=== PATIENT | male | born 1965 | race Caucasian/White ===

== ENCOUNTER 2016-09-29 11:43 | Inpatient (IN) | payer OTHER ==
[~2016-09-29] VITALS: Ht 200.7 cm; Wt 91.4 kg
[2016-10-05] MEDS ORDERED: VITA1000 PO (09:04)
[2016-10-05] MEDS ORDERED: TRAM50TA PO (09:04)
[2016-11-11] MEDS ORDERED: ceFAZolin 2 GM PREMIX 50 ML IV SCH (05:45)
[2016-11-11] MEDS: POVIDONE IODINE 7.5% SCRUB 118 ML BOTTLE TOP SCH (05:45)
[2016-11-11] MEDS ORDERED: EXPAREL PERI-ARTICULAR INJECTION (TOTAL VOL. 60 ML) P-ARTICULR SCH ×2 (05:45)
[2016-11-11] MEDS ORDERED: METOPROLOL TARTRATE 25 MG TAB PO PRN (05:45)
[2016-11-11] MEDS ORDERED: VANCOMYCIN 1250 MG/NS 250 ML (for 70-84 kg) IV SCH ×2 (05:45)
[2016-11-11] MEDS ORDERED: LACTATED RINGER'S 1000 ML IV SCH (05:45)
[2016-11-11] MEDS ORDERED: SODIUM CHLORID 0.9% 500 ML IV SCH (05:45)
[2016-11-11] MEDS ORDERED: INSULIN HUMAN REGULAR 1,000 UNITS/10 ML VIAL SQ PRN (05:45)
[2016-11-11] MEDS ORDERED: MELO-1 PO (06:26)
[2016-11-11 06:30] VITALS: BP 131/77; PULSE 88; RESP 20; TEMP 98; O2SAT 98
[2016-11-11 06:42] LABS: AUTOMATED NEUTROPHIL # 5.4 TH/MM3 (1.8-7.7); BASOPHIL # 0.1 TH/MM3 (0-0.2); BASOPHIL % 0.8 % (0.0-2.0); EOSINOPHIL # 0.2 TH/MM3 (0-0.4); HEMATOCRIT 40.3 % (39.0-51.0); HEMO FLAGS DIFF FINAL; LYMPH % 19.7 % (9.0-44.0); LYMPHOCYTE # 1.6 TH/MM3 (1.0-4.8); MEAN CELL VOLUME 90.4 FL (80.0-100.0); MEAN CORPUSCULAR HEMOGLOBIN 31.7 PG (27.0-34.0); MEAN CORPUSCULAR HGB CONC 35.1 % (32.0-36.0); MONO % 9.4 % (0.0-8.0); NEUT % 67.1 % (16.0-70.0); PLATELET COUNT 293 TH/MM3 (150-450); RED BLOOD COUNT 4.46 MIL/MM3 (4.50-5.90); RED CELL DISTRIBUTION WIDTH 13.2 % (11.6-17.2); WHITE BLOOD COUNT 8.1 TH/MM3 (4.0-11.0)
[2016-11-11 06:56] LABS: BICARBONATE 27.2 MEQ/L (21.0-32.0); POTASSIUM 3.6 MEQ/L (3.5-5.1)
[2016-11-11] MEDS ORDERED: MIDAZOLAM HCL 2 MG/2 ML VIAL ONE (07:25)
[2016-11-11] MEDS ORDERED: ACETAMINOPHEN 1000 MG/100 ML VIAL IV ONE (07:25)
[2016-11-11] MEDS ORDERED: TRANEXAMIC ACID IV SCH ×2 (07:30→10:30)
[2016-11-11] MEDS ORDERED: SODIUM CHLORIDE 0.9% IV SCH ×2 (07:30→10:30)
[2016-11-11] MEDS ORDERED: GENTAMICIN SULFATE 80 MG/2 ML VIAL XX ONE (08:18)
[2016-11-11] MEDS ORDERED: fentaNYL CITRATE 250 MCG/5 ML AMP ONE (11:38)
[2016-11-11] MEDS ORDERED: *morphine SULFATE 8 MG/ML PERIprocedure ONLY ONE (11:39)
[2016-11-11] MEDS ORDERED: *ONDANSETRON 4 MG VIAL PERIprocedural Use ONLY ONE (11:39)
[2016-11-11] MEDS ORDERED: DO NOT ADM ANY ANTICOAGULANT DRUGS XX PRN (11:39)
[2016-11-11] MEDS ORDERED: SODIUM CHLORIDE 0.9% FLUSH 5 ML FLUSH IVF PRN (11:45)
[2016-11-11] MEDS ORDERED: NALOXONE HCL 0.4 MG/ML AMP IV PRN (11:45)
[2016-11-11] MEDS ORDERED: diphenhydrAMINE HCL 50 MG/ML VIAL IV PRN (11:45)
[2016-11-11] MEDS ORDERED: ONDANSETRON HCL 4 MG/2 ML VIAL IVP PRN (11:45)
[2016-11-11] MEDS ORDERED: Post-op Orders (for Pharmacy) MISC XX ONE (11:45)
[2016-11-11] MEDS ORDERED: ACETAMINOPHEN/HYDROcodone 325 MG/5 MG TAB PO PRN (11:45)
[2016-11-11] MEDS ORDERED: HYDR-3516 PO (11:49)
[2016-11-11] MEDS ORDERED: ENOX40P SQ (11:49)
--- NOTE | 2016-11-11 11:51 | HHI.FF ---
Face to Face Verification Diagnosis: (1) S/P total hip arthroplasty Physical Therapy Gait training, Safety evaluation, Transfer training, bed to chair Hip: Total hip, Protocol: Left, Abduction pillow while in bed Left LE Weight Bearing: WB as tolerated Nursing Nursing: Iker teaching, Dressing changes Dressing Changes: Daily dressing change, Coverderm/Primapore I have seen patient Pooja Millan on 11/11/16. My clinical findings support the need for the requested home health care services because: Limited ability to care for self Injectable med education/admin I certify that my clinical findings support that this patient is homebound because: Unable to use public transportation Zeyad Moy MD Nov 11, 2016 11:51
[2016-11-11] MEDS ORDERED: MISC-163 (11:52)
[2016-11-11] MEDS ORDERED: MISC-274 (11:52)
[2016-11-11] MEDS: MORPHINE SULFATE 30 MG/30 ML PCA IV SCH (12:06)
[2016-11-11] MEDS: DEXT 5%-NACL 0.9% 1000 ML INJ 1,000 ML IV SCH ×2 (12:08→21:44)
[2016-11-11] MEDS ORDERED: NEOSTIGMINE 3 MG/3 ML SYR IV ONE (12:38)
[2016-11-11] MEDS ORDERED: ONDANSETRON HCL 4 MG/2 ML VIAL IV PUSH ONE (12:38)
[2016-11-11] MEDS ORDERED: PROPOFOL 200 MG/20 ML AMP IV ONE (12:38)
[2016-11-11] MEDS: KETOROLAC TROMETHAMINE 30 MG/ML (IVP) VIAL IVP SCH ×2 (12:57→18:24)
[2016-11-11 13:27] VITALS: BP 151/81; PULSE 104; RESP 16; TEMP 95.7; O2SAT 100
--- NOTE | 2016-11-11 13:31 | RADRPT ---
EXAM DATE/TIME: 11/11/2016 12:49 [facility] COMPARISON: No previous studies available for comparison. INDICATIONS : Post op left hip surgery. MEDICAL HISTORY : Unobtainable. SURGICAL HISTORY : Unobtainable. ENCOUNTER: Initial ACUITY: 1 day PAIN SCORE: 10/10 LOCATION: Left hip. FINDINGS: There is a total hip prosthesis in place. The acetabular component is secured by 2 screws. The hardwa re appears well placed. There is a surgical drain seen. CONCLUSION: Successful left total hip replacement. Jimmy Iverson MD on November 11, 2016 at 13:29 Board Certified Radiologist. This report was verified electronically.
--- NOTE | 2016-11-11 13:56 | RADRPT ---
EXAM DATE/TIME: 11/11/2016 08:14 [facility] COMPARISON: No previous studies available for comparison. INDICATIONS : Total left hip replacement. MEDICAL HISTORY : None. SURGICAL HISTORY : None. ENCOUNTER: Initial ACUITY: 1 day PAIN SCORE: Non-responsive. LOCATION: Left hip. FINDINGS: Examination of the hip demonstrates postsurgical changes following joint replacement. Acetabular and femoral components are well-seated in satisfactory alignment. There is no acute fracture. CONCLUSION: Satisfactory postoperative appearance of the left hip status post right replacement. Juan David Ramos MD on November 11, 2016 at 13:54 Board Certified Radiologist. This report was verified electronically.
[2016-11-11] MEDS: PCA - TOTAL MG MORPHINE DELIVERED PER SHIFT SCH ×2 (14:00→22:58)
[2016-11-11] MEDS: ceFAZolin 2 GM PREMIX 50 ML IV SCH ×2 (14:55→20:33)
[2016-11-11 16:00] VITALS: BP 141/78; PULSE 89; RESP 16; TEMP 97.1; O2SAT 100
[2016-11-11 16:53] VITALS: O2SAT 100
[2016-11-11] MEDS: ACETAMINOPHEN 1000 MG/100 ML VIAL IV SCH (18:23)
[2016-11-11] MEDS ORDERED: VANCOMYCIN INJ 1,500 MG in SODIUM CHLORID 0.9% 500 ML INJ 500 ML IV SCH (21:00)
[2016-11-11] MEDS: SODIUM CHLORIDE 0.9% FLUSH 5 ML FLUSH IVF SCH (21:00)
[2016-11-11] MEDS ORDERED: TEMAZEPAM 15 MG CAP PO PRN (21:00)
[2016-11-11 22:40] VITALS: BP 127/70; PULSE 98; RESP 18; TEMP 96.7; O2SAT 98
[2016-11-12 00:25] VITALS: BP 112/54; PULSE 101; RESP 18; TEMP 99.9; O2SAT 95
[2016-11-12] MEDS: KETOROLAC TROMETHAMINE 30 MG/ML (IVP) VIAL IVP SCH ×5 (01:00→16:51)
[2016-11-12] MEDS: ceFAZolin 2 GM PREMIX 50 ML IV SCH (02:57)
[2016-11-12] MEDS: DEXT 5%-NACL 0.9% 1000 ML INJ 1,000 ML IV SCH ×3 (03:06→19:37)
[2016-11-12] MEDS: POVIDONE IODINE 7.5% SCRUB 118 ML BOTTLE TOP SCH (03:15)
[2016-11-12 03:40] VITALS: BP 151/79; PULSE 97; RESP 18; TEMP 99.1; O2SAT 98
[2016-11-12] MEDS: ACETAMINOPHEN 1000 MG/100 ML VIAL IV SCH ×2 (05:19→18:26)
[2016-11-12] MEDS: MORPHINE SULFATE 30 MG/30 ML PCA IV SCH (06:16)
[2016-11-12] MEDS: PCA - TOTAL MG MORPHINE DELIVERED PER SHIFT SCH (06:16)
[2016-11-12 07:01] LABS: HEMATOCRIT 34.9 % (39.0-51.0); REVIEW FLAG FINAL
[2016-11-12 07:23] LABS: POTASSIUM 3.9 MEQ/L (3.5-5.1)
[2016-11-12] MEDS: SODIUM CHLORIDE 0.9% FLUSH 5 ML FLUSH IVF SCH ×2 (07:59→19:39)
--- NOTE | 2016-11-12 07:59 | PD.ORT.PN ---
Subjective Post Op Day #: 1 Pain Scale: 4 Subjective Remarks ok Distance Walked OOB yesterday Objective Vitals Vital Signs Date Time Temp Pulse Resp B/P Pulse Ox O2 Delivery O2 Flow Rate FiO2 11/12/16 06:16 18 11/12/16 06:16 18 11/12/16 03:40 99.1 97 18 151/79 98 11/12/16 00:25 99.9 101 18 112/54 95 11/11/16 22:58 18 11/11/16 22:40 96.7 98 18 127/70 98 11/11/16 16:53 100 Nasal Cannula 2.00 11/11/16 16:00 97.1 89 16 141/78 100 11/11/16 13:27 95.7 104 16 151/81 100 11/11/16 13:00 98.0 86 12 155/93 98 Nasal Cannula 2 11/11/16 12:45 85 14 139/83 97 Nasal Cannula 2 11/11/16 12:30 79 14 135/86 97 Nasal Cannula 3 11/11/16 12:15 85 15 150/90 98 Nasal Cannula 3 11/11/16 12:11 18 11/11/16 12:06 15 11/11/16 12:00 87 13 152/90 94 Nasal Cannula 3 11/11/16 11:45 80 16 152/89 95 Nasal Cannula 3 11/11/16 11:30 98.3 92 15 160/92 94 Nasal Cannula 3 I/O 11/11/16 11/11/16 11/11/16 11/12/16 11/12/16 11/12/16 07:00 15:00 23:00 07:00 15:00 23:00 Intake Total 1165 ml 1787 ml 480 ml Output Total 300 ml 580 ml 880 ml Balance 865 ml 1207 ml -400 ml Intake Oral 265 ml 480 ml 480 ml IV Total 1307 ml Other 900 ml Output Urine Total 0 ml 300 ml 750 ml Drainage Total 0 ml 280 ml 130 ml Estimated Blood Loss 300 ml # Bowel Movements 0 0 0 Result Diagram: 11/12/1607 11/12/16606 Imaging Last 24 hours Impressions Hip X-Ray 11/11/16 1137 Signed Impressions: Service Date/Time: Friday, November 11, 2016 12:49 - CONCLUSION: Successful left total hip replacement. Jimmy Iverson MD Objective Remarks A,A, and O Dressings dry, drain out. Moves toes well Assessment & Plan Ortho Post Op Day #: 1 Problem List: Assessment and Plan Stable post op left NABIL,Zeyad Grimes MD Nov 12, 2016 07:59
[2016-11-12 08:00] VITALS: BP 139/72; PULSE 97; RESP 19; TEMP 99.2; O2SAT 99
[2016-11-12] MEDS ORDERED: PNEUMOCOCCAL POLYVALENT INJ 25 MCG/0.5 ML SYR IM ONE (09:00)
[2016-11-12] MEDS ORDERED: ASPIRIN 325 MG TAB PO ONE (11:00)
[2016-11-12] MEDS ORDERED: ENOXAPARIN SODIUM 40 MG/0.4 ML SYRINGE SQ SCH (11:00)
[2016-11-12 11:12] VITALS: BP 140/69; PULSE 102; RESP 18; TEMP 100.3; O2SAT 95
[2016-11-12] MEDS: ACETAMINOPHEN/HYDROcodone 325 MG/5 MG TAB PO PRN ×2 (15:35→19:38)
[2016-11-12 16:00] VITALS: BP 138/70; PULSE 98; RESP 17; TEMP 99.2; O2SAT 96
[2016-11-12] MEDS: POLYETHYLENE GLYCOL 17 GM PKG PO SCH (19:39)
[2016-11-12] MEDS: ASPIRIN 325 MG TAB PO SCH (19:39)
[2016-11-12] MEDS: DOCUSATE SODIUM 100 MG CAP PO SCH (19:39)
[2016-11-12] MEDS: BISACODYL EC 5 MG TABEC PO SCH (19:39)
[2016-11-12] MEDS: MAGNESIUM HYDROXIDE SUSP 30 ML CUP PO SCH (19:39)
[2016-11-12 20:00] VITALS: BP 131/70; PULSE 98; RESP 18; TEMP 98.9; O2SAT 96
[2016-11-13] VITALS: BP 137/74; PULSE 95; RESP 18; TEMP 98.1; O2SAT 97
[2016-11-13] MEDS: KETOROLAC TROMETHAMINE 30 MG/ML (IVP) VIAL IVP SCH ×2 (02:02→05:43)
[2016-11-13] MEDS: ACETAMINOPHEN/HYDROcodone 325 MG/5 MG TAB PO PRN ×4 (02:02→18:13)
[2016-11-13] MEDS: DEXT 5%-NACL 0.9% 1000 ML INJ 1,000 ML IV SCH ×3 (03:06→19:37)
[2016-11-13] MEDS: POVIDONE IODINE 7.5% SCRUB 118 ML BOTTLE TOP SCH (03:07)
--- NOTE | 2016-11-13 05:27 | PD.ORT.PN ---
Subjective Post Op Day #: 2 Pain Scale: hurts Subjective Remarks was quite painful during radiation bec of leg and back stiffness Objective Vitals Vital Signs Date Time Temp Pulse Resp B/P Pulse Ox O2 Delivery O2 Flow Rate FiO2 11/13/16 00:00 98.1 95 18 137/74 97 11/12/16 20:00 98.9 98 18 131/70 96 11/12/16 16:00 99.2 98 17 138/70 96 11/12/16 11:12 100.3 102 18 140/69 95 11/12/16 08:00 99.2 97 19 139/72 99 11/12/16 06:16 18 11/12/16 06:16 18 I/O 11/12/16 11/12/16 11/12/16 11/13/16 11/13/16 11/13/16 07:00 15:00 23:00 07:00 15:00 23:00 Intake Total 480 ml 620 ml 480 ml 240 ml Output Total 880 ml 900 ml Balance -400 ml 620 ml 480 ml -660 ml Intake Oral 480 ml 620 ml 480 ml 240 ml Output Urine Total 750 ml 900 ml Drainage Total 130 ml # Voids 3 2 # Bowel Movements 0 0 0 Result Diagram: 11/12/16 0607 11/12/16 0607 Imaging Last 24 hours Impressions Hip X-Ray 11/11/16 1137 Signed Impressions: Service Date/Time: Friday, November 11, 2016 12:49 - CONCLUSION: Successful left total hip replacement. Jimmy Iverson MD Objective Remarks sleeping comfy, wakes up easily Dressings dry, drain out. Moves toes well DC plan discussed ASA for VTE prophylaxis. Low risk DVT Assessment & Plan Ortho Post Op Day #: 2 Problem List: Assessment and Plan Stable post op left NABIL,ASI DC wednesday with [facility], [facility] and ASA Zeyad Leslie MD Nov 13, 2016 05:27
[2016-11-13] MEDS ORDERED: ASPI325T PO (05:30)
[2016-11-13] MEDS: ACETAMINOPHEN 1000 MG/100 ML VIAL IV SCH ×2 (05:44→16:42)
[2016-11-13] MEDS ORDERED: MORPHINE SULFATE 4 MG/ML INJ IV ONE (06:00)
[2016-11-13 08:00] VITALS: BP 126/69; PULSE 90; RESP 18; TEMP 96.9; O2SAT 95
[2016-11-13] MEDS: BISACODYL EC 5 MG TABEC PO SCH ×2 (08:03→21:08)
[2016-11-13] MEDS: ASPIRIN 325 MG TAB PO SCH ×2 (08:03→21:07)
[2016-11-13] MEDS: DOCUSATE SODIUM 100 MG CAP PO SCH ×2 (08:03→21:07)
[2016-11-13] MEDS: MAGNESIUM HYDROXIDE SUSP 30 ML CUP PO SCH ×2 (08:03→21:08)
[2016-11-13 12:00] VITALS: BP 146/85; PULSE 95; RESP 17; TEMP 96.6; O2SAT 98
[2016-11-13 16:00] VITALS: BP 114/69; PULSE 117; RESP 18; TEMP 100.3; O2SAT 95
[2016-11-13 20:00] VITALS: BP 135/72; PULSE 98; RESP 22; TEMP 98.2; O2SAT 97
--- NOTE | 2016-11-13 20:53 | MP ---
cc: REANNA MOY DATE OF SURGERY 11/11/2016 PREOPERATIVE DIAGNOSIS Osteoarthritis left hip. POSTOPERATIVE DIAGNOSIS Osteoarthritis left hip. OPERATIVE PROCEDURE Total hip replacement arthroplasty left hip using anterior supine intramuscular approach. SURGEON Dr. Lance Moy ANESTHESIA General IMPLANTS 58 mm José Antonio cup with two dome screws. Flat 36 mm liner. Stem 12 mm taper lock standard offset Head 36 mm ceramic standard neck length. TECHNIQUE After induction of general anesthesia, the patient placed appropriately on the operating table to be able to hyperextend the hip. Both lower extremities from umbilicus down to the foot were prepped with alcohol and ChloraPrep and draped in routine fashion using double fenestrated drape and Ioban drapes, etc., getting excellent draping. After time-out, incision was made starting two fingerbreadths below and lateral to the anterior superior iliac spine and distally for 10 cm deepened through subcutaneous tissue. Hemostasis obtained with cautery. The peripheral fibers of the tensor fascia ravi were identified and the fascia cut about 10 mm from its edge. Fascia was lifted and finger dissection was carried out to separate the tensor from the fascia and develop the interval between the rectus femoris and the tensor fascia ravi. Superficial and deep circumflex vessels were identified, clamped, cut and cauterized and also Aquamantys was used generously for the oozers. Deep dissection was carried out and inferior, superior and anterior retractors were placed. The capsule was cauterized with the Aquamantys system and capsulectomy was carried out. Fluoroscopic imaging was carried out to determine the site of bone section and bone was sectioned here. A napkin ring piece of neck was cut and excised. The head was now excised. There were large osteophytes attached to the head fragment as well as the neck fragment. The hip was extended, externally rotated and retractor was placed and some limited dissection of the superior capsule was carried up from the lesser trochanter. We then developed exposure to the acetabulum which was quite difficult and, therefore, fluoroscopic imaging was carried out which revealed that we had excess neck over the area of the trochanteric fossa and therefore oscillating saw was used to take all of bone out without compromising the calcar. A posterior capsule was incised, labrum excised and retractors were placed and this patient had large bones and large neck and it is still difficult to get access. We were eventually able to get access to safe reaming starting with a small reamers, eventually to a 57 mm reamer. A 58 mm trial fits well and therefore a 58 mm José Antonio cup was impacted in place in 40-45 degrees of abduction and about 10 about 50 degrees if anteversion. Cup bottomed out well. Two dome screws were placed. A flat liner impacted in place. The tedious exposure to the femur was started now using the Omni track table top retractor with the hook. It was externally rotated and adducted and extended and the superior capsule was elevated off of this large greater trochanter. Some posterior capsule resection was also carried out from the neck. drchrono cutter was used followed by canal finder and broaches to a 12 mm taper lock broach which fits very well. We used a standard length taper lock because it fits better. I decided to go ahead and put the stem in and the stem fits very well in slight anteversion about 5-10 degrees. The trial reduction was carried out with a -3 head and stability, limb lengths all looked good, but it looks like we could probably lengthen him a few more millimeters and, therefore, the hip was dislocated and a standard neck length was used with a 36 mm ceramic head which was impacted onto the Robles taper and final reduction was carried out. Fluoroscopic images revealed good position, alignment, fixation and clinically there is good stability and good leg lengths. Leg length was checked both clinically and radiographically. Wound was irrigated with saline solution. Hemostasis was good. An 1/8" Hemovac drain left in the depths of the wound. Some of the anterior portion of the tensor fascia ravi is lacerated and, therefore, this was repaired with #2 Vicryl. Fascia was closed with #2 quill, subcutaneous tissue 2-0 Vicryl, skin with 3-0 subcuticular quill and Steri-Strips. Dressings applied with 4x4s, ABD and Medipore tape. Some of the contused skin was debrided with a sharp scalpel. Abduction pillow applied. The patient transferred to recovery room in satisfactory condition. The patient tolerated the procedure well. TRANSFUSIONS AND COMPLICATIONS None. POSTOPERATIVE CONDITION Satisfactory PROGNOSIS Good. ESTIMATED BLOOD LOSS 350-450 mL. Reanna Chinmay, MD SS/ /11:29 AM /8:37 PM
[2016-11-13] MEDS: POLYETHYLENE GLYCOL 17 GM PKG PO SCH (21:08)
[2016-11-13] MEDS: SODIUM CHLORIDE 0.9% FLUSH 5 ML FLUSH IVF SCH (21:09)
[2016-11-14 00:31] VITALS: BP 129/69; PULSE 103; RESP 22; TEMP 100.1; O2SAT 95
[2016-11-14] MEDS: ACETAMINOPHEN/HYDROcodone 325 MG/5 MG TAB PO PRN ×2 (01:49→09:31)
[2016-11-14] MEDS: DEXT 5%-NACL 0.9% 1000 ML INJ 1,000 ML IV SCH ×2 (03:37→11:37)
[2016-11-14] MEDS: ACETAMINOPHEN 1000 MG/100 ML VIAL IV SCH (03:44)
[2016-11-14 04:00] VITALS: PULSE 94; TEMP 98.7
[2016-11-14 08:00] VITALS: BP 136/79; PULSE 90; RESP 16; TEMP 98.2; O2SAT 98
[2016-11-14] MEDS: ASPIRIN 325 MG TAB PO SCH (09:31)
[2016-11-14] MEDS: BISACODYL EC 5 MG TABEC PO SCH (09:31)
[2016-11-14] MEDS: MAGNESIUM HYDROXIDE SUSP 30 ML CUP PO SCH (09:31)
[2016-11-14] MEDS: DOCUSATE SODIUM 100 MG CAP PO SCH (09:31)
[2016-11-14] MEDS: SODIUM CHLORIDE 0.9% FLUSH 5 ML FLUSH IVF SCH (09:41)
[2016-11-14 12:00] VITALS: BP 134/70; PULSE 99; RESP 16; TEMP 96.6; O2SAT 95
--- NOTE | 2016-12-30 06:36 | MD ---
cc: REANNA CAMEJO ADMISSION DATE: 11/11/2016 DISCHARGE DATE: 11/14/2016 ADMISSION DIAGNOSIS Osteoarthritis of the left hip. DISCHARGE DIAGNOSIS Osteoarthritis of the left hip. ADDITIONAL DIAGNOSIS Severe spondylosis lumbar spine. BRIEF HISTORY/HOSPITAL COURSE History consisted of longstanding problem with both hips but particularly problems with the left hip for which she was appropriately worked up and admitted to the hospital and on the day of admission underwent total hip replacement arthroplasty of the left hip through the anterior approach. Postoperative course was uneventful. The patient did receive prophylactic radiation for prevention of myositis ossificans in the postoperative period. Postoperative labs and x-rays were all satisfactory. He was ambulated weightbearing as tolerated. DISPOSITION He was discharged home health care having been arranged for and to receive appropriate pain medications and prophylactic anticoagulation. Home health care was also arranged for physical therapy. CONDITION ON DISCHARGE She is discharged improved and in stable condition. MD UNIQUE Bonilla/GILMA /11:57 AM /6:31 AM
== END 2016-11-14 15:52 | disposition home health service (06) | DRG 470 ==
LOC: HSDI 11-11 05:11 → N06A 11-11 13:19
PROVIDERS: ADMIT Orthopaedic Surgery; ATTEND Orthopaedic Surgery
PROC: 0SRB04A Replacement of Left Hip Joint with Ceramic on Polyethylene Synthetic Substitute, Uncemented, Open Approach (ICD-10-PCS; principal; 2016-11-11 07:29)
PROC: DW061ZZ Beam Radiation of Pelvic Region using Photons 1 - 10 MeV (ICD-10-PCS; 2016-11-13)
DX: M16.12 Unilateral primary osteoarthritis, left hip (principal); Z23 Encounter for immunization
CPT/HCPCS: 73501; 73502; 76000; 77263; 77290; 77307; 77334; 77412; 80048; 85014; 85018; 85025; 86850; 86900; 86901; 90471; 90732; 94150; 99222; C1776; C9290; G0009; J0131; J0690; J1580; J1885; J2250; J2270; J2405; J2710; J3010; J3370; J7040; J7042; J7050; J7120

== ENCOUNTER → 2016-10-05 | Outpatient (CLI) | payer OTHER ==
[~2016-10-05] MED LIST: ASPI325T PO; ENOX40P SQ; HYDR-3516 PO; MELO-1 PO; MISC-163; MISC-274; TRAM50TA PO; VITA1000 PO
[2016-10-05 09:45] LABS: AUTOMATED NEUTROPHIL # 5.5 TH/MM3 (1.8-7.7); BASOPHIL # 0.1 TH/MM3 (0-0.2); BASOPHIL % 0.7 % (0.0-2.0); EOSINOPHIL # 0.3 TH/MM3 (0-0.4); EOSINOPHIL % 3.4 % (0.0-4.0); HEMATOCRIT 43.5 % (39.0-51.0); HEMO FLAGS DIFF FINAL; LYMPH % 18.7 % (9.0-44.0); LYMPHOCYTE # 1.5 TH/MM3 (1.0-4.8); MEAN CELL VOLUME 91.1 FL (80.0-100.0); MEAN CORPUSCULAR HEMOGLOBIN 31.8 PG (27.0-34.0); MEAN CORPUSCULAR HGB CONC 34.9 % (32.0-36.0); MONO % 7.9 % (0.0-8.0); NEUT % 69.3 % (16.0-70.0); PLATELET COUNT 336 TH/MM3 (150-450); RED BLOOD COUNT 4.77 MIL/MM3 (4.50-5.90); RED CELL DISTRIBUTION WIDTH 13.4 % (11.6-17.2); WHITE BLOOD COUNT 7.9 TH/MM3 (4.0-11.0)
[2016-10-05 09:52] LABS: BLOOD, URINE NEG (NEG); CALCIUM OXALATE CRYSTALS,URINE RARE /hpf; COMMENT (UR) CULT NOT INDICATED; CULTURE IF INDICATED CULT NOT INDICATED; GLUCOSE,URINE NEG (NEG); KETONE, URINE NEG (NEG); MUCUS URINE FEW /lpf (OCC); NITRITE,URINE NEG (NEG); URINE COLOR YELLOW (YELLW/STRAW)
[2016-10-05 10:02] LABS: APTT (PATIENT) 29.8 SEC (24.3-30.1); PROTHROMBIN TIME - PATIENT 10.7 SEC (9.8-11.6)
[2016-10-05 10:14] LABS: ANION GAP 4 MEQ/L (5-15); AST (GOT) 12 U/L (15-37); BICARBONATE 31.9 MEQ/L (21.0-32.0); BLOOD UREA NITROGEN 14 MG/DL (7-18); CHLORIDE 104 MEQ/L (98-107); GLOMERULAR FILTRATION RATE 74 ML/MIN (>89); GLUCOSE,FASTING 76 MG/DL (74-99); POTASSIUM 4.5 MEQ/L (3.5-5.1); SODIUM (NA) 140 MEQ/L (136-145)
[2016-10-05 10:18] LABS: ALKALINE PHOSPHATASE 105 U/L (45-117); ALT (GPT) 28 U/L (12-78); TOTAL BILIRUBIN ADULT 0.4 MG/DL (0.2-1.0)
--- NOTE | 2016-10-05 11:39 | RADRPT ---
EXAM DATE/TIME: 10/05/2016 11:14 [facility] COMPARISON: No previous studies available for comparison. INDICATIONS : Pre op for left hip surgery. MEDICAL HISTORY : None. smoker SURGICAL HISTORY : None. ENCOUNTER: Initial ACUITY: 1 day PAIN SCORE: 0/10 LOCATION: Bilateral upper chest FINDINGS: PA and lateral views of the chest demonstrate the lungs to be symmetrically aerated without evidence of mass, infiltrate or effusion. The cardiomediastinal contours are unremarkable. Osseous structure s are intact. CONCLUSION: No acute disease. Sergio Brandt MD FACR on October 05, 2016 at 11:37 Board Certified Radiologist. This report was verified electronically.
--- NOTE | 2016-10-06 17:11 | EKG ---
Date Performed: 10/05/2016 Time Performed: 08:57:26 PTAGE: 51 years EKG: Sinus rhythm WITH OCCASIONAL VENTRICULAR PREMATURE COMPLEXES BORDERLINE ECG NO PREVIOUS TRACING DOCTOR: Jacky Parker Interpretating Date/Time 10/06/2016 17:07:02
== END ==
LOC: CPRE 08:23
PROVIDERS: ATTEND Orthopaedic Surgery
DX: Z01.810 Encounter for preprocedural cardiovascular examination (principal); Z01.812 Encounter for preprocedural laboratory examination; Z01.811 Encounter for preprocedural respiratory examination; M16.2 Bilateral osteoarthritis resulting from hip dysplasia; I49.3 Ventricular premature depolarization
CPT/HCPCS: 36415; 71020; 80053; 81001; 85025; 85610; 85730; 93005

== ENCOUNTER 2016-12-08 09:28 | Observation (INO) | payer OTHER ==
[2016-12-08] VITALS (11 sets, daily range): BP systolic 114–154; BP diastolic 63–80; PULSE 73–114; RESP 16–18; TEMP 97.8–98.7; O2SAT 94–99
[~2016-12-08] VITALS: Ht 185.4 cm; Wt 94.0 kg
[2016-12-08] MEDS ORDERED: ASPIRIN 81 MG CHEW TAB PO ONE (09:45)
[2016-12-08] MEDS ORDERED: SODIUM CHLORIDE 0.9% FLUSH 10 ML FLUSH IVF PRN (09:45)
[2016-12-08] MEDS: NITROGLYCERIN 0.4 MG SL 25 TABS/BTL SL SCH ×3 (09:50→10:09)
[2016-12-08 10:01] LABS: BASOPHIL # 0.1 TH/MM3 (0-0.2); BASOPHIL % 0.7 % (0.0-2.0); EOSINOPHIL # 0.4 TH/MM3 (0-0.4); EOSINOPHIL % 4.4 % (0.0-4.0); HEMATOCRIT 39.6 % (39.0-51.0); HEMO FLAGS DIFF FINAL; MEAN CELL VOLUME 90.4 FL (80.0-100.0); MEAN CORPUSCULAR HEMOGLOBIN 30.5 PG (27.0-34.0); MEAN CORPUSCULAR HGB CONC 33.7 % (32.0-36.0); NEUT % 66.9 % (16.0-70.0); PLATELET COUNT 438 TH/MM3 (150-450); RED BLOOD COUNT 4.39 MIL/MM3 (4.50-5.90)
[2016-12-08 10:06] LABS: APTT (PATIENT) 27.3 SEC (24.3-30.1); PROTHROMBIN TIME - PATIENT 10.8 SEC (9.8-11.6)
--- NOTE | 2016-12-08 10:10 | PD ---
HPI Chief Complaint: Chest Pain Time Seen by Provider: 09:37 Travel History International Travel<30 days: No Contact w/Intl Traveler<30days: No Traveled to known affect area: No History of Present Illness HPI Patient is a 51-year-old male who presents emergency Department with complaint of chest pain. Patient states that he has had left-sided inferior chest pain that is a pressure at this morning. It radiates slightly down the left arm with numbness and tingling in the left arm. Patient states that the pain seems to come and go and he hasn't necessarily found anything that makes it better or worse. He notes that he has had some mild dyspnea, worse with exertion for the last several weeks. Patient is approximate 1 month status post left hip placement, and attributed his dyspnea to postoperative course. He takes an aspirin twice a day, but denies any history of blood clots or bleeding disorders. No cough, chest congestion, hemoptysis. No leg swelling. 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) Endocrine Surgery: No Eye Surgery: No Genitourinary Surgery: No Gynecologic Surgery: No Joint Replacement: No Oral Surgery: Yes (QUESTIONABLE TONSILS) Pacemaker: No Thoracic Surgery: No Other Surgery: Yes Social History Alcohol Use: Yes (OCASSIONALLY) Tobacco Use: Yes (1 PACK PER DAY) Substance Use: Yes (marijuana use occasionally) Allergies-Medications (Allergen,Severity, Reaction): Coded Allergies: No Known Allergies (Unverified , 12/08/16) Reported Meds & Prescriptions Reported Meds & Active Scripts Active Aspirin 325 Mg Tab 325 Mg PO BID Hydrocodone-Acetaminophen 5-325 mg Tab 2 Tab PO Q4H PRN Reported Meloxicam 15 Mg Tab 15 Mg PO DAILY Vitamin D-1000 (Cholecalciferol) 1,000 Unit Tab 1,000 Units PO DAILY Review of Systems Except as stated in HPI: all other systems reviewed are Neg Physical Exam Narrative GENERAL: Well-appearing male in no acute distress SKIN: Focused skin assessment warm/dry. HEAD: Normocephalic. EYES: No scleral icterus. No injection or drainage. ENT: Mucous membranes pink and moist. NECK: Supple CARDIOVASCULAR: Tachycardic borderline with heart rates in the 100s to 110s, regular rhythm. No murmur appreciated. RESPIRATORY: No accessory muscle use. Clear to auscultation. Breath sounds equal bilaterally. GASTROINTESTINAL: Abdomen soft, non-tender, nondistended. MUSCULOSKELETAL: No obvious deformities. No edema. NEUROLOGICAL: Awake and alert. Motor grossly within normal limits. Normal speech. PSYCHIATRIC: Appropriate mood and affect; insight and judgment normal. Data Data Last Documented VS Vital Signs Date Time Temp Pulse Resp B/P Pulse Ox O2 Delivery O2 Flow Rate FiO2 12/08/16 10:18 102 18 128/63 96 Room Air 12/08/16 09:31 98.1 Orders Electrocardiogram (12/08/16 ) Basic Metabolic Panel (Bmp) (12/08/16 09:41) Ckmb (Isoenzyme) Profile (12/08/16 09:41) Complete Blood Count With Diff (12/08/16 09:41) Magnesium (Mg) (12/08/16 09:41) Prothrombin Time / Inr (Pt) (12/08/16 09:41) Act Partial Throm Time (Ptt) (12/08/16 09:41) Troponin I (12/08/16 09:41) Ecg Monitoring (12/08/16 09:41) Bilateral Bp Monitoring (12/08/16 09:41) Iv Access Insert/Monitor (12/08/16 09:41) Oximetry (12/08/16 09:41) Aspirin Chew (Aspirin Chew) (12/08/16 09:45) Sodium Chloride 0.9% Flush (Ns Flush) (12/08/16 09:45) Nitroglycerin Sl (Nitrostat Sl) (12/08/16 09:45) Ct Pulmonary Angiogram (12/08/16 09:41) Iohexol 350 Inj (Omnipaque 350 Inj) (12/08/16 11:28) Admit Order (Ed Use Only) (12/08/16 11:50) Labs Laboratory Tests Test 12/08/16 09:40 White Blood Count 9.0 TH/MM3 Red Blood Count 4.39 MIL/MM3 Hemoglobin 13.4 GM/DL Hematocrit 39.6 % Mean Corpuscular Volume 90.4 FL Mean Corpuscular Hemoglobin 30.5 PG Mean Corpuscular Hemoglobin 33.7 % Concent Red Cell Distribution Width 14.0 % Platelet Count 438 TH/MM3 Mean Platelet Volume 7.7 FL Neutrophils (%) (Auto) 66.9 % Lymphocytes (%) (Auto) 22.0 % Monocytes (%) (Auto) 6.0 % Eosinophils (%) (Auto) 4.4 % Basophils (%) (Auto) 0.7 % Neutrophils # (Auto) 6.0 TH/MM3 Lymphocytes # (Auto) 2.0 TH/MM3 Monocytes # (Auto) 0.5 TH/MM3 Eosinophils # (Auto) 0.4 TH/MM3 Basophils # (Auto) 0.1 TH/MM3 CBC Comment DIFF FINAL Differential Comment Prothrombin Time 10.8 SEC Prothromb Time International 1.0 RATIO Ratio Activated Partial 27.3 SEC Thromboplast Time Sodium Level 141 MEQ/L Potassium Level 3.9 MEQ/L Chloride Level 105 MEQ/L Carbon Dioxide Level 27.4 MEQ/L Anion Gap 9 MEQ/L Blood Urea Nitrogen 15 MG/DL Creatinine 1.09 MG/DL Estimat Glomerular Filtration 71 ML/MIN Rate Random Glucose 128 MG/DL Calcium Level 9.0 MG/DL Magnesium Level 2.0 MG/DL Total Creatine Kinase 85 U/L Troponin I LESS THAN 0.02 NG/ML [facility] Medical Decision Making Medical Screen Exam Complete: Yes Emergency Medical Condition: Yes Medical Record Reviewed: Yes Differential Diagnosis 51 year-old male proximally 1 month status post left total hip arthroplasty here with several weeks of mild dyspnea on exertion and now left-sided chest pain with radiation down the left arm. Differential includes pulmonary embolism , atelectasis, symptomatic anemia, electrolyte abnormality, arrhythmia, ACS and less likely dissection. Narrative Course Patient placed on monitor, IV established and blood obtained. A twelve-lead EKG shows sinus tachycardia, rate [address] abnormalities, normal intervals. Patient had taken aspirin prior to arrival today and was given nitroglycerin here. CBC, BMP, magnesium, CK-MB, troponin, coags were obtained and were unremarkable. CT pulmonary angiogram showed no evidence of PE. Patient is feeling improved and is pain-free at this time. Given his age, gender and history of tobacco abuse patient will be admitted to chest pain center for serial enzymes and likely provocative testing. Diagnosis Primary Impression: Chest pain Qualified Code: R07.2 - Precordial pain Additional Impression: Lightheadedness Admitting Information Admitting Physician Requests: Sheree Woo MD Dec 08, 2016 10:09
[2016-12-08 10:22] LABS: ANION GAP 9 MEQ/L (5-15); BICARBONATE 27.4 MEQ/L (21.0-32.0); BLOOD UREA NITROGEN 15 MG/DL (7-18); CHLORIDE 105 MEQ/L (98-107); GLOMERULAR FILTRATION RATE 71 ML/MIN (>89); POTASSIUM 3.9 MEQ/L (3.5-5.1); SODIUM (NA) 141 MEQ/L (136-145)
[2016-12-08 10:27] LABS: CREATINE KINASE 85 U/L (39-308)
[2016-12-08] MEDS ORDERED: IOHEXOL 350 MG/ML 10 ML VIAL (for RAD DIAG) IV ONE (11:28)
--- NOTE | 2016-12-08 11:39 | RADRPT ---
EXAM DATE/TIME: 12/08/2016 11:16 [facility] COMPARISON: No previous studies available for comparison. INDICATIONS : Chest pain, hip surgery 4 weeks ago. IV CONTRAST: 50 cc Omnipaque 350 (iohexol) IV Injection Site: Lt AC Lot: [id number] Exp Date: Aug 2019 Lot: Exp Date : RADIATION DOSE: 23.29 CTDIvol (mGy) MEDICAL HISTORY : Cardiovascular disease. SURGICAL HISTORY : hip surgery ENCOUNTER: Initial ACUITY: 1 day PAIN SCALE: 4/10 LOCATION: chest TECHNIQUE: Volumetric scanning of the chest was performed using a pulmonary embolism protocol MIP images were re constructed. Using automated exposure control and adjustment of the mA and/or kV according to patien t size, radiation dose was kept as low as reasonably achievable to obtain optimal diagnostic quality images. FINDINGS: PULMONARY ARTERIES: No filling defects are seen in the pulmonary arteries through the segmental level. LUNGS: There is a calcified granuloma in the right upper lobe measuring 3.6 mm on image 44. Additional scatt ered calcified granulomas are seen within the bilateral lungs. No evidence of pneumonia. PLEURAE: There is no pleural thickening or pleural effusion. MEDIASTINUM: There is good visualization of the great vessels of the middle mediastinum. No evidence of mediastin al or hilar adenopathy/mass. MUSCULOSKELETAL: Within normal limits for patient age. MISCELLANEOUS: The visualized upper abdominal organs demonstrate no acute abnormality. There is a circumscribed hypo dense mass within the right chest subcutaneous tissues abutting the skin surface measuring 3.1 x 1.8 cm in transverse and AP diameter on image 36. This is seen anterior to the right second rib. This rivas uld be readily palpable. A sebaceous cyst is suspected. CONCLUSION: 1. No evidence for pulmonary embolism. 2. Probable sebaceous cyst right anterior chest. 3. Calcified granulomas. Ander Merino MD on December 08, 2016 at 11:35 Board Certified Radiologist. This report was verified electronically.
--- NOTE | 2016-12-08 12:25 | EKG ---
Date Performed: 12/08/2016 Time Performed: 09:34:56 PTAGE: 51 years EKG: SINUS TACHYCARDIA WITH SHORT ID INTERVAL ABNORMAL RHYTHM ECG PREVIOUS TRACING : 10/05/2016 08.57 DOCTOR: Yinka Roman Interpretating Date/Time 12/08/2016 12:24:05
[2016-12-08] MEDS ORDERED: ACETAMINOPHEN 500 MG CPLT PO PRN (13:00)
[2016-12-08] MEDS ORDERED: ALPRAZolam 0.25 MG TAB PO PRN (13:00)
[2016-12-08] MEDS ORDERED: ACETAMINOPHEN/HYDROcodone 325 MG/5 MG TAB PO PRN (13:00)
[2016-12-08] MEDS ORDERED: SODIUM CHLORIDE 0.9% FLUSH 5 ML FLUSH IVF PRN (13:00)
[2016-12-08] MEDS ORDERED: RESP: ALBUTEROL 2.5 MG/IPRATROPIUM 0.5 MG NEB (PRN) INH (13:00)
[2016-12-08] MEDS ORDERED: ONDANSETRON HCL 4 MG/2 ML VIAL IV PRN (13:00)
[2016-12-08] MEDS: PANTOPRAZOLE SOD 40 MG DELAYED RELEASE TAB PO SCH (13:05)
--- NOTE | 2016-12-08 13:05 | HHI.HP ---
[facility] Primary Care Physician Cora Arriaga MD Chief Complaint Chest pain History of Present Illness This is a 51-year-old male with history of recent left total hip replacement that presents to the ED complaining of developing a left lower chest pressure about a 30 this morning. He just sat down drinks some coffee. The same time he felt a head nelson. He did get a little dizzy as well. No weakness in extremities. The discomfort in the chest lasted a couple minutes. He states his diaphoretic and nauseous. No shortness of breath. Denies any swelling in the legs. Denies calf pain. Denies cardiac history and cannot recall ever having a stress test. Patient smokes cigarettes. Review of Systems General: Patient denies fevers, chills recent, and recent travel HEENT: Patient denies headache, sore throat, difficulty swallowing. Cardiovascular: Has the chest discomfort as mentioned above. Denies sensation of heart beating rapidly or irregularly. No syncope. He was diaphoretic. Respiratory: Denies shortness of breath or inspirational chest discomfort. Denies coughing wheezing or hemoptysis. GI: Patient was nauseous. Patient denies vomiting, diarrhea, abdominal pain, bloody stools. Musculoskeletal: Patient denies joint pain or edema. Denies calf pain or edema. Neurovascular: He felt a little dizzy. Patient denies numbness, tingling, weakness in extremities. Denies headache. Endocrine: Denies polyuria and polydipsia. Hematologic: Denies easy bruising. Skin: Denies rash or itching. Past Family Social History Allergies: Coded Allergies: No Known Allergies (Unverified , 12/08/16) Past Medical History Recent left total hip replacement. Arthritis. Tobacco abuse. Denies hypertension, hyperlipidemia, diabetes, and CAD. Past Surgical History Left total hip replacement. Reported Medications Reported Meds & Active Scripts Active Aspirin 325 Mg Tab 325 Mg PO BID Hydrocodone-Acetaminophen 5-325 mg Tab 2 Tab PO Q4H PRN Reported Meloxicam 15 Mg Tab 15 Mg PO DAILY Vitamin D-1000 (Cholecalciferol) 1,000 Unit Tab 1,000 Units PO DAILY Active Ordered Medications Current Medications Medications (Trade) Dose Ordered Sig/Bernadine Route Start Time Stop Time Status Last Admin (NS Flush) 2 ml UNSCH PRN IVF 12/08/16 09:45 12/08/16 09:35 (NS Flush) 2 ml UNSCH PRN IVF 12/08/16 13:00 UNV (NS Flush) 2 ml BID IVF 12/08/16 21:00 UNV (Tylenol) 500 mg Q4H PRN PO 12/08/16 13:00 UNV (Zofran Inj) 4 mg Q6H PRN IV 12/08/16 13:00 UNV (Aspirin) 325 mg DAILY PO 12/09/16 09:00 UNV (Xanax) 0.25 mg Q8H PRN PO 12/08/16 13:00 UNV ([place] 5-325 Mg) 2 tab Q4H PRN PO 12/08/16 13:00 UNV (Protonix) 40 mg DAILY PO 12/08/16 13:00 UNV Family History Denies family history of CAD. Social History Patient smokes about one half pack of cigarettes daily for the past month but prior that smoked one pack of cigarettes daily for 30 years. Occasional alcohol. Smokes marijuana occasionally. Physical Exam Vital Signs Vital Signs Date Time Temp Pulse Resp B/P Pulse Ox O2 Delivery O2 Flow Rate FiO2 12/08/16 12:31 97.8 76 17 123/76 99 Room Air 12/08/16 10:18 102 18 128/63 96 Room Air 12/08/16 10:14 17 12/08/16 09:42 18 97 Room Air 12/08/16 09:42 106 18 154/67 97 137/80 12/08/16 09:31 106 18 98 Room Air 12/08/16 09:31 98.1 114 18 154/68 99 Physical Exam GENERAL: This is a well-nourished, well-developed patient, in no apparent distress. Patient speaks in clear complete sentences. Patient is pleasant. HEENT: Head is atraumatic and normocephalic. Neck is supple without lymphadenopathy and trachea is midline. No JVD or carotid bruits. CARDIOVASCULAR: Regular rate and rhythm without murmurs, gallops, or rubs. RESPIRATORY: There is left lower chest wall tenderness. This is the same type discomfort he had this morning. Clear to auscultation. Breath sounds equal bilaterally. No wheezes, rales, or rhonchi. No use of accessory muscles. GASTROINTESTINAL: Abdomen is nontender, nondistended. Abdomen soft. No obvious pulsatile mass or bruit. No CVA tenderness. Strong femoral pulses bilaterally. Normal bowel sounds in all quadrants. MUSCULOSKELETAL: Patient is moving upper and lower extremities freely. No calf tenderness or edema, no Homans sign. Strong pulses in upper and lower extremities. NEUROLOGICAL: Patient is alert and oriented. Cranial nerves 2-12 are grossly intact. No focal deficits and speech is clear. SKIN: No rash and turgor is normal. Laboratory Laboratory Tests Test 12/08/16 09:40 White Blood Count 9.0 Red Blood Count 4.39 Hemoglobin 13.4 Hematocrit 39.6 Mean Corpuscular Volume 90.4 Mean Corpuscular Hemoglobin 30.5 Mean Corpuscular Hemoglobin 33.7 Concent Red Cell Distribution Width 14.0 Platelet Count 438 Mean Platelet Volume 7.7 Neutrophils (%) (Auto) 66.9 Lymphocytes (%) (Auto) 22.0 Monocytes (%) (Auto) 6.0 Eosinophils (%) (Auto) 4.4 Basophils (%) (Auto) 0.7 Neutrophils # (Auto) 6.0 Lymphocytes # (Auto) 2.0 Monocytes # (Auto) 0.5 Eosinophils # (Auto) 0.4 Basophils # (Auto) 0.1 CBC Comment DIFF FINAL Differential Comment Prothrombin Time 10.8 Prothromb Time International 1.0 Ratio Activated Partial 27.3 Thromboplast Time Sodium Level 141 Potassium Level 3.9 Chloride Level 105 Carbon Dioxide Level 27.4 Anion Gap 9 Blood Urea Nitrogen 15 Creatinine 1.09 Estimat Glomerular Filtration 71 Rate Random Glucose 128 Calcium Level 9.0 Magnesium Level 2.0 Total Creatine Kinase 85 Troponin I LESS THAN 0.02 Result Diagram: 12/08/1640 12/08/16939 Imaging Last [address] Angiography 12/08/1641 Signed Impressions: Service Date/Time: Thursday, December 08, 2016 11:16 - CONCLUSION: 1. No evidence for pulmonary embolism. 2. Probable sebaceous cyst right anterior chest. 3. Calcified granulomas. Ander Merino MD Course Initial EKG has sinus tachycardia rate of [address] segment depressions or elevations. Assessment and Plan Assessment and Plan * Chest pain: Patient's discomfort appears to be atypical at this time. He will continue to have serial cardiac enzymes and EKGs for ruling out purposes and will be seen by Dr. Paulson cardiology and the chest pain center. He will likely have a stress test in the morning. He would be discharged if his stress test were to be nonischemic with instructions to then follow-up with local physician. * Tobacco abuse: Patient has been counseled on the importance of smoking cessation. Rafi Mancilla Dec 08, 2016 13:05
[2016-12-08 14:35] LABS: CREATINE KINASE 68 U/L (39-308)
[2016-12-08 16:55] LABS: CREATINE KINASE 65 U/L (39-308)
[2016-12-08] MEDS: SODIUM CHLORIDE 0.9% FLUSH 5 ML FLUSH IVF SCH (21:00)
[2016-12-09] VITALS: PULSE 62
[2016-12-09 02:45] VITALS: BP 127/70; PULSE 80; RESP 18; TEMP 97.8; O2SAT 96
[2016-12-09 07:45] VITALS: BP 123/83; PULSE 89; RESP 20; TEMP 98; O2SAT 96
[2016-12-09] MEDS: SODIUM CHLORIDE 0.9% FLUSH 5 ML FLUSH IVF SCH (09:00)
[2016-12-09] MEDS: PANTOPRAZOLE SOD 40 MG DELAYED RELEASE TAB PO SCH (09:00)
[2016-12-09] MEDS ORDERED: ASPIRIN 325 MG TAB PO SCH (09:00)
[2016-12-09] MEDS ORDERED: REGADENOSON INJ 0.4 MG/5 ML SYR ONE (09:25)
--- NOTE | 2016-12-09 11:04 | RADRPT ---
EXAM DATE/TIME: 12/09/2016 08:38 [place] COMPARISON: No previous studies available for comparison. INDICATIONS : Substernal chest pain with dizziness, diaphoresis and nausea. Angina. DOSE: 27.2 mCi Tc99m Myoview at stress. 8.5 mCi Tc99m Myoview at rest. 0.4 mg Lexiscan STRESS SYMPTOMS: Weird feeling, dyspnea, and head pressure. EJECTION FRACTION: 60% MEDICAL HISTORY : None SURGICAL HISTORY : Left hip replacement 1 month ago. ENCOUNTER: Initial ACUITY: 1 day PAIN SCALE: 6/10 LOCATION: Substernal chest TECHNIQUE: The patient underwent pharmacologic stress with infusion of prescribed dose. Continuous ECG tracing was monitored during stress. Gated SPECT imaging was performed after stress and conventional SPECT i maging was performed at rest. The examination was performed on a SPECT/CT scanner, both attenuation and non-corrected datasets were reviewed. FINDINGS: DISTRIBUTION: The maximum perfused segment at stress is in the anterolateral wall. PERFUSION STUDY: The pattern of perfusion at stress is within normal limits. GATED STUDY: There is intact wall motion and thickening without hypokinetic or dyskinetic segments. CONCLUSION: Normal examination. RISK CATEGORY: Low (<1% Annual Mortality Rate) Jimmy Chavarria MD on December 09, 2016 at 10:56 Board Certified Radiologist. This report was verified electronically.
[2016-12-09 11:18] VITALS: BP 140/75; PULSE 106; RESP 20; TEMP 99; O2SAT 96
--- NOTE | 2016-12-09 11:21 | HHI.DCPOC ---
Discharge Care Plan Diagnosis: (1) Chest pain (2) Tobacco abuse Goals to Promote Your Health * To prevent worsening of your condition and complications * To maintain your health at the optimal level Directions to Meet Your Goals Take your medications as prescribed Follow your dietary instruction Follow activity as directed Keep your appointments as scheduled Take your immunizations and boosters as scheduled If your symptoms worsen call your PCP, if no PCP go to Urgent Care Center or Emergency Room Smoking is Dangerous to Your Health. Avoid second hand smoke Call the 24-hour hour crisis hotline for domestic abuse at Rafi Mancilla Dec 09, 2016 11:21
--- NOTE | 2016-12-09 12:08 | EKG ---
Date Performed: 12/08/2016 Time Performed: 16:13:05 PTAGE: 51 years EKG: Sinus rhythm NORMAL ECG PREVIOUS TRACING : 12/08/2016 13.11 Since previous tracing, no significant change noted DOCTOR: Devaughn Samson Interpretating Date/Time 12/09/2016 12:02:05
--- NOTE | 2016-12-09 12:10 | EKG ---
Date Performed: 12/08/2016 Time Performed: 13:11:21 PTAGE: 51 years EKG: Sinus rhythm NORMAL ECG PREVIOUS TRACING : 12/08/2016 09.34 Since previous tracing, no significant change noted DOCTOR: Devaughn Samson Interpretating Date/Time 12/09/2016 12:04:25
--- NOTE | 2016-12-09 12:12 | TR ---
Date Performed: 12/09/2016 Time Performed: 09:26:49 DOCTOR: Devaughn Samson DRUG LIST: CLINICAL HISTORY: CHEST PAIN REASON FOR TEST: CHEST PAIN REASON FOR ENDING: OBSERVATION: CONCLUSION: Lexiscan stress test was performed under standard four minute protocol. Radionuclid e was injected one minute prior to ending the test. No electrocardiographic abormalities were present to suggest ischemia. Nuclear imaging and interpretation are pending. COMMENTS:
== END 2016-12-09 14:29 | disposition home or self-care (01) ==
LOC: NEPC 09:28 → NEDA 11:51 → NEPHCDU 13:53
PROVIDERS: ADMIT Internal Medicine Interventional Cardiology; ATTEND Internal Medicine Interventional Cardiology
DX: R07.89 Other chest pain (principal); F17.210 Nicotine dependence, cigarettes, uncomplicated; Z96.642 Presence of left artificial hip joint; Z79.82 Long term (current) use of aspirin
CPT/HCPCS: 71275; 78452; 80048; 82550; 83735; 84484; 85025; 85610; 85730; 93005; 93017; 99285; A9502; G0378; J2785; Q9967